=== PATIENT | male | born 1980 ===

== ENCOUNTER 2017-01-19 07:16 | Day surgery (SDC) | payer OTHER ==
--- NOTE | 2017-01-05 10:00 | HP ---
PREOPERATIVE HISTORY AND PHYSICAL: DATE OF ADMISSION/SURGERY: 01/19/17 DATE OF OFFICE VISIT/ENCOUNTER: 12/23/16 ATTENDING SURGEON: Rosanne Winkler MD (dictated by MARK Padgett) PROCEDURE: Left wrist carpal tunnel release and ulnar nerve decompression at the wrist. CHIEF COMPLAINT: Numbness and tingling, bilateral hands. HISTORY OF PRESENT ILLNESS: This is a 36-year-old inmate at [place], who complains of bilateral numbness and tingling in his hand since 2014. He says he got his hands caught in part of the jailhouse door. He has had surgery on the right for carpal tunnel release, but did not get relief of symptoms. He has had a recent nerve conduction study, which showed median and ulnar nerve compression at both wrists in moderate degree. Symptoms are equal bilaterally. The patient denies any significant neck pain. The symptoms have become bothersome enough that he would like to proceed with surgical intervention at this time starting with the left wrist in the form of the left wrist carpal tunnel release and an ulnar nerve decompression at the wrist. PAST MEDICAL HISTORY: 1. Migraine headaches. 2. Depression. PAST SURGICAL HISTORY: 1. Right carpal tunnel release in 2014. 2. Chest tube placement for punctured lung. CURRENT MEDICATIONS: 1. Effexor XR daily. 2. Imitrex p.r.n. migraine headaches. 3. Vistaril. 4. Vitamin B6. ALLERGIES: No known drug allergies. FAMILY MEDICAL HISTORY: Breast cancer. SOCIAL HISTORY: The patient is inmate at [place]. He denies tobacco use, alcohol use, or recreational drug use. REVIEW OF SYSTEMS: General: Negative for fevers, chills, or night sweats. No known anesthesia problems. HEENT: Positive for migraine headaches. Negative for lightheadedness or syncopal episodes. Integumentary: Negative for abrasions, lesions, or open wounds. Cardiothoracic: Negative for hypertension , chest pain, palpitations, or edema. Pulmonary: Negative for shortness of breath with exertion, chronic cough, or COPD. GI: Negative for nausea, vomiting, diarrhea, constipation, or GERD. : Negative for nocturia, urinary frequency, urgency, history of UTIs, or kidney problems. Musculoskeletal: Positive for current complaint. Negative for chronic or intermittent back pain or history of fractures. Neurological: Negative for history of seizure, stroke , or epilepsy. Endocrine: Negative for diabetes or thyroid issues. Hematologic : Negative for easy bruising, anemia, excessive bleeding, or history of DVT. Infectious Disease: Negative for history of MRSA, hepatitis C, or HIV. PHYSICAL EXAMINATION GENERAL: Well-developed, well-nourished, 36-year-old male, in no acute distress. VITAL SIGNS: Height 6 feet tall, weight 215 pounds, pulse 58, blood pressure 118/74. HEENT: Normocephalic, atraumatic. Pupils are equal, round, and reactive to light and accommodation. Extraocular movements are intact. NECK: Supple. No palpable lymph nodes. Throat is clear. PULMONARY: Lungs are clear to auscultation bilaterally. No wheezes, rales, or rhonchi. CARDIOTHORACIC: Regular rate and rhythm. S1 and S2. No murmurs, rubs, or gallops. No edema. ABDOMEN: Positive bowel sounds, soft, nontender. MUSCULOSKELETAL: On exam of his bilateral upper extremities/hands, he has well - healed scar on the palm of his right hand. He can fully flex and extend his fingers bilaterally. He has intact sensation in his median and ulnar nerve distributions bilaterally. He has a positive Phalen's test bilaterally, more so on the left than on the right. Negative Tinel's of the ulnar nerve at the elbow. He has some good range of motion of his neck without pain. Skin is intact. NEUROLOGICAL: Alert and oriented x3. Cranial nerves II through XII are intact. Sensation is intact to light touch. PERIPHERAL VASCULAR: 2+ radial and ulnar pulses. DIAGNOSTIC STUDIES: EMG/nerve conduction study shows moderate median and ulnar nerve compression bilaterally. 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 PLAN: The patient is scheduled to undergo a left wrist carpal tunnel release and ulnar nerve decompression at the wrist with Dr. Winkler, date to be determined. He will return to the office 10 to 14 days postop for followup and suture removal. Recommend Ultracet for postoperative pain management and that will be handled by the physician at his facility. MARK PADGETT [id number]/[facility] #: [id number] JANUSZ
--- NOTE | 2017-01-14 22:17 | HP ---
HISTORY AND PHYSICAL: DATE OF SURGERY/ADMISSION: 01/19/17 [facility] ATTENDING SURGEON: Dr. Winkler (dictated by MARK Reyez) PROCEDURE: Left wrist carpal tunnel release and ulnar nerve decompression at the wrist. CHIEF COMPLAINT: Left wrist pain and numbness. HISTORY OF PRESENT ILLNESS: Blake Crowe is a 36-year-old male who complains of bilateral numbness and tingling in his hands since 2014. He states that he got his hands caught in part of a jailhouse door. He had surgery on the right for carpal tunnel release, but he states he did not get relief of his symptoms. He has had recent nerve conduction studies which showed median and ulnar nerve compression of both wrists, moderate in degree. Symptoms are equal bilaterally. Denies any significant neck pain. PAST MEDICAL HISTORY: Hypertension and migraines. PAST SURGICAL HISTORY: 1. Carpal tunnel release, right wrist, 2014. 2. Septoplasty in 2014. 3. Chest tube placement in 2004. MEDICATIONS: 1. Vitamin B6. 2. Effexor. 3. Restoril. 4. Imitrex. ALLERGIES: No known drug allergies. FAMILY HISTORY: Cancer and hypertension. SOCIAL HISTORY: He is an inmate at [facility]. Tobacco use half pack per day. Denies alcohol or drug use. REVIEW OF SYSTEMS: A 14-point review of systems was reviewed with the patient today, positive for headaches, positive for hypertension, positive for back pain , right shoulder pain and ulnar neuropathy. Otherwise, negative and noncontributory. Negative for history of MRSA, negative for hep C, negative for HIV. PHYSICAL EXAMINATION GENERAL: Well-developed, well-nourished 36-year-old male in no acute distress. VITAL SIGNS: Height 72 inches, weight 213 pounds. Pulse 83, blood pressure 128 /79, temperature is 98.1. BMI 28.9. HEENT: Head is normocephalic, atraumatic. NECK: Supple. No palpable lymph nodes. Throat is clear. PULMONARY: Lungs are clear to auscultation bilaterally. No wheezes, rales or rhonchi. CARDIAC: Regular rate and rhythm. S1, S2. No murmurs, rubs, or gallops. No edema. ABDOMEN: Soft, nontender. Positive bowel sounds throughout. MUSCULOSKELETAL: Full painless range of motion of his fingers. Intact sensation in the median and ulnar nerve distribution today. He has positive Phalen's test bilaterally on the left than the right. Negative Tinel's of the ulnar nerve at the elbow. There is no swelling or ecchymosis. NEUROLOGIC: Alert and oriented x3. Cranial nerves II through II are intact. Sensation is intact to light touch. SKIN: Intact. DIAGNOSTIC STUDIES: His EMG/nerve conduction studies showed moderate median and ulnar nerve decompression bilaterally. IMPRESSION: Bilateral median and ulnar nerve decompression of the wrists. PLAN: The patient is scheduled to undergo left wrist carpal tunnel release and ulnar nerve decompression at the wrists with Dr. Winkler on 01/19/17. He will return to the office 10 to 14 days postop for followup and suture removal. I recommend Ultracet for postoperative pain management and that will be handled by the physician in his facility. MARK ABREU [id number]/[facility] #: [id number] JANUSZ
[2017-01-19] MEDS ORDERED: Buffered Lidocaine 1% SYRIN* 5 ML/SYR SYRINGE ONE (07:20)
[2017-01-19] MEDS ORDERED: Lidocaine 1% INJ* 10 MG/ML 30 ML SDV ONE (07:24)
[2017-01-19] MEDS ORDERED: fentaNYL* 50 MCG/ML 2 ML VIAL (100 MCG VIAL) ONE (07:51)
[2017-01-19] MEDS ORDERED: Midazolam* 1 MG/ML 5 ML VIAL (5 MG) ONE (07:56)
[2017-01-19 09:03] VITALS: BP 132/60
[2017-01-19] MEDS ORDERED: Ibuprofen TAB* 600 MG ONE (09:11)
--- NOTE | 2017-01-20 02:41 | OP ---
OPERATIVE NOTE: DATE OF OPERATION: 01/19/17 - [facility] DATE OF : 84 SURGEON: Rosanne Winkler MD [employer]: MARK Padgett ANESTHESIOLOGIST: Sumit Gomez MD. ANESTHESIA: Local MAC. PRE-OP DIAGNOSIS: Left carpal tunnel syndrome. POST-OP DIAGNOSIS: Left carpal tunnel syndrome. OPERATIVE PROCEDURE: Left carpal tunnel release. ESTIMATED BLOOD LOSS: Zero. TOURNIQUET TIME: 15 minutes. INDICATIONS FOR PROCEDURE: Blake is a 36-year-old inmate with numbness and tingling in his left hand. Nerve conduction study shows median and ulnar nerve compression to left wrist. He presents for decompression of these nerves. DESCRIPTION OF PROCEDURE: The patient was brought to the operating room, was given a sedation anesthetic and a local infiltration of 10 cc of 1% plain lidocaine. The skin of his left hand and forearm was prepped and draped in the usual sterile fashion. The hand and forearm were exsanguinated and the tourniquet elevated to 250 mmHg. A longitudinal incision was made with zig-zag across the wrist flexion creases on the ulnar aspect. We dissected sharply through the subcutaneous tissue down to the transverse carpal ligament. The ligament was divided sharply with a knife and then more proximally with the scissors. Next, the ulnar nerve was located in the distal aspect of the wrist and carefully dissected through Guyon canal, completely releasing to the entire nerve passed, where its put into the motor and sensory branches. The wound was irrigated and the skin edges were reapproximated with 4-0 nylon suture. The wound was dressed with Xeroform, 4x4, Webril, and an Brody wrap. The patient tolerated the procedure well, was brought to the recovery room in good condition. [id number]/[facility] #: [id number] [facility]
== END 2017-01-19 09:20 | disposition home or self-care (01) ==
LOC: OREAST 07:16
PROVIDERS: ATTEND Orthopaedic Surgery
DX: G56.02 Carpal tunnel syndrome, left upper limb (principal); F17.210 Nicotine dependence, cigarettes, uncomplicated
CPT/HCPCS: A9270-GY; J2001; J2250; J3010